=== PATIENT | female | born 1990 | race Caucasian/White ===

== ENCOUNTER 2016-08-27 06:58 | Observation (INO) ==
[2016-08-27] MEDS ORDERED: Ondansetron 4 MG/2 ML VIAL IVP ONE ×2 (07:25→11:54)
[2016-08-27] MEDS ORDERED: Ketorolac 30 MG/ML VIAL IVP ONE (07:25)
--- NOTE | 2016-08-27 07:39 | Emergency Department Note ---
Disposition Clinical Impression: Cholecystitis Disposition: Home, Self-Care Condition: Good Abdominal Pain HPI - General Chief Complaint: ED Abdominal Pain Stated Complaint: abdominal pain, vomiting Time Seen by Provider: 08/27/16 07:14 Source: patient Nursing Notes Reviewed: Yes Vital Signs Reviewed: Yes - History of Present Illness HPI Narrative: Patient began having right upper quadrant and epigastric abdominal pain last night. Was not relieved with Pepto-Bismol. She states the pain radiates to her right and left upper quadrants. Does have associated nausea and vomiting. 2 episodes of this. States she feels clammy but no fevers or chills. Pain Scale: 7 - Related Data Home Medications Medication Instructions Recorded Confirmed Norgestimate-Ethinyl Estradiol 08/24/15 [Ortho Tri-Cyclen 28 Tablet] hydrOXYzine HCl [Hydroxyzine HCl] Q6HR 08/24/15 metFORMIN [Glucophage] 500 mg PO TID 08/24/15 08/24/15 Escitalopram [Lexapro] 20 mg PO DAILY 08/27/16 08/27/16 Esomeprazole Magnesium [Nexium] 40 mg PO DAILY 08/27/16 08/27/16 Labetalol HCl 200 mg PO Q6H 08/27/16 08/27/16 Lisinopril [Zestril] 10 mg PO DAILY 08/27/16 08/27/16 Meloxicam [Mobic] 15 mg PO DAILY 08/27/16 08/27/16 Allergies Allergy/AdvReac Type Severity Reaction Status Date / Time No Known Allergies Allergy Verified 08/27/16 10:42 All systems ED: reviewed and negative except as stated. Constitutional: Denies: fever, chills ENT ED: Denies: ear pain, throat pain, congestion Cardiovascular: Denies: chest pain, palpitations Respiratory: Denies: cough, dyspnea Gastrointestinal: Reports: abdominal pain, nausea, vomiting. Denies: diarrhea, hematemesis, melena Genitourinary: Denies: urgency, dysuria, frequency Musculoskeletal: Denies: back pain, neck pain Neurological: Denies: headache, weakness Abdominal Pain PMH - Past Medical History Medical history: Reports: GERD, hypertension Female Surgical History: Reports: other Psychiatric history: Reports: anxiety - Social History Smoking status: Never smoker Alcohol use: Reports: none Drug use: Reports: none Physical Exam - General Limitations: no limitations General appearance: alert, in no apparent distress - Head Head exam: atraumatic, normocephalic - Eye Eye exam: Present: normal appearance, PERRL, EOMI. Absent: scleral icterus - ENT ENT exam: normal exam, normal oropharynx, mucous membranes moist - Neck Neck exam: Present: normal inspection, full ROM, trachea midline. Absent: tenderness, meningismus, lymphadenopathy - Chest Chest inspection: Present: normal inspection, symmetric chest wall rise. Absent : tenderness - Respiratory Respiratory exam: Present: normal lung sounds bilaterally. Absent: respiratory distress, wheezes - Cardiovascular Cardiovascular exam: Present: regular rate, normal rhythm, normal heart sounds - Abdominal Exam Abdominal exam: Present: soft, tenderness, normal bowel sounds, Lu's sign. Absent: distention, rigidity, organomegaly, Rovsing's sign, tenderness at McBurney's Point - Extremities Exam Extremities exam: Present: normal inspection, full ROM, normal capillary refill. Absent: tenderness, pedal edema - Back Exam Back exam: Present: normal inspection, full ROM. Absent: tenderness, CVA tenderness (R), CVA tenderness (L) - Neurological Exam Neurological exam: Present: alert, oriented X3 - Psychiatric Psychiatric exam: Present: normal affect, normal mood - Skin Skin exam: Present: warm, dry, intact, normal color. Absent: rash, cyanosis Course Course Narrative: Female patient presenting to the emergency department with complaints of burning sensation in her abdomen and radiates to the upper right and upper left quadrants. States this began last night. Pepto-Bismol on attempt to help with this and went to sleep. She states she does have a history of acid reflux this is not uncommon for her however the pain did not relieve by this morning. She states it is actually worse. She states the pain is in the center of her abdomen epigastric region radiates to the right and left upper quadrants. She does have a positive Lu sign on ramp. Also reporting 2 episodes of vomiting. She reports this is just bile. Denies any hematemesis. No urinary complaints. Normal bowel movements for her she states. We will get a right upper quadrant ultrasound the patient's abdomen. We will also get basic labs and provide patient with pain relief and antinausea medication. She states her last meal was last night at dinner. She denies any fevers or chills but states that she does feel clammy. - Reevaluation(s) Reevaluation #1: Patient resting comfortably in bed. She states that she is feeling better now that she has pain medication. We will discuss with Dr. walker admission for the patient. She does have an elevated white blood cell count. She did have a positive Lu sign on exam. She also has stones and probable pericholecystic fluid on the right upper quadrant ultrasound. Time: 09:30 - Consultations Consultation #1: Patient discussed with Dr. walker. He will admit Pt. Pt is in stable condition. Time: 09:31 Vital Signs Temperature 97.9 F 08/27/16 07:01 Pulse Rate 99 08/27/16 07:01 Respiratory Rate 16 08/27/16 07:01 Blood Pressure 182/127 08/27/16 07:01 O2 Sat by Pulse Oximetry 95 08/27/16 07:01 Temperature 98.1 F 08/27/16 10:40 Pulse Rate 105 08/27/16 10:40 Respiratory Rate 16 08/27/16 10:40 Blood Pressure 145/91 08/27/16 10:40 O2 Sat by Pulse Oximetry 97 08/27/16 10:40 Oxygen Delivery Oxygen Delivery Room Air Abdominal Pain - Medical Records Medical records reviewed: Yes I reviewed the patient's medical records. - Lab Data Lab results reviewed: Yes I reviewed the patient's lab results. Result diagrams: 08/27/16 07:53 08/27/16 07:53 Lab Results 08/27/16 08/27/16 08/27/16 Range/Units 07:11 07:11 07:53 WBC 18.4 H (4.3-11.1) K/mcL RBC 4.36 (3.82-4.97) M/mcL Hgb 11.8 (11.5-15.4) g/dL Hct 36.7 (35.3-44.9) % MCV 84.2 (83.0-100.0) fL MCH 27.1 L (28.0-33.3) pg MCHC 32.2 (31.6-35.5) g/dL RDW 13.5 (11.5-14.5) % Plt Count 467 H (140-400) K/mcL MPV 9.7 (9.4-12.4) fL Immature Gran % 0.4 (0-4) % Seg Neutrophils % 87.0 % Lymphocytes % 7.4 % Monocytes % 4.8 % Eosinophils % 0.1 % Basophils % 0.3 % Neutrophils # 16.0 H (1.6-8.9) K/mcL Lymphocytes # 1.4 (0.6-4.6) K/mcL Monocytes # 0.9 (0.0-1.3) K/mcL Eosinophils # 0.0 (0.0-0.6) K/mcL Basophils # 0.1 (0.0-0.2) K/mcL Sodium (136-145) mEq/L Potassium (3.5-4.5) mEq/L Chloride (98-109) mEq/L Carbon Dioxide (19-29) mEq/L BUN (7-20) mg/dL Creatinine (0.57-1.11) mg/dL Est GFR ( Amer) (> 60) Est GFR (Non-Af Amer) (> 60) BUN/Creatinine Ratio (6-26) Glucose (70-99) mg/dL Calculated Osmolality (280-300) Calcium (8.6-10.8) mg/dL Total Bilirubin (0.2-1.2) mg/dL Direct Bilirubin (0.0-0.5) mg/dL Indirect Bilirubin (0.0-1.2) mg/dL AST (5-34) Units/L ALT (0-55) Units/L Alkaline Phosphatase (38-126) Units/L Serum Total Protein (6.0-8.3) g/dL Albumin (3.5-5.0) g/dL Globulin (2.4-3.5) g/dL Albumin/Globulin Ratio (1.1-2.2) Amylase (25-125) Units/L Lipase (8-78) Units/L Urine Color Yellow (Yellow) Urine Clarity Cloudy A (Clear) Urine pH 6.0 (5.0-8.0) pH Units Ur Specific [place] 1.028 H (1.010-1.025) Urine Protein 100 H (Neg-Trace) mg/dL Urine Glucose (UA) Normal (Normal) mg/dL Urine Ketones Negative (Negative) mg/dL Urine Blood Moderate H (Negative) Urine Nitrite Negative (Negative) Urine Bilirubin Negative (Negative) Urine Urobilinogen Normal (Normal) mg/dL Ur Leukocyte Esterase Negative (Negative) Urine Microscopic RBC 5-15 H (0-3) per hpf Urine Microscopic WBC 0-3 (0-3) per hpf Ur Squamous Epith Cells Many H (None-Few) per lpf Urine Bacteria Few (None-Few) per hpf Ur Culture Indicated? NO (NO) Urine Test Negative (Negative) 08/27/16 Range/Units 07:53 WBC (4.3-11.1) K/mcL RBC (3.82-4.97) M/mcL Hgb (11.5-15.4) g/dL Hct (35.3-44.9) % MCV (83.0-100.0) fL MCH (28.0-33.3) pg MCHC (31.6-35.5) g/dL RDW (11.5-14.5) % Plt Count (140-400) K/mcL MPV (9.4-12.4) fL Immature Gran % (0-4) % Seg Neutrophils % % Lymphocytes % % Monocytes % % Eosinophils % % Basophils % % Neutrophils # (1.6-8.9) K/mcL Lymphocytes # (0.6-4.6) K/mcL Monocytes # (0.0-1.3) K/mcL Eosinophils # (0.0-0.6) K/mcL Basophils # (0.0-0.2) K/mcL Sodium 135 L (136-145) mEq/L Potassium 4.1 (3.5-4.5) mEq/L Chloride 101 (98-109) mEq/L Carbon Dioxide 21 (19-29) mEq/L BUN 11 (7-20) mg/dL Creatinine 0.85 (0.57-1.11) mg/dL Est GFR ( Amer) > 60 (> 60) Est GFR (Non-Af Amer) > 60 (> 60) BUN/Creatinine Ratio 13 (6-26) Glucose 129 H (70-99) mg/dL Calculated Osmolality 281 (280-300) Calcium 9.8 (8.6-10.8) mg/dL Total Bilirubin 0.3 (0.2-1.2) mg/dL Direct Bilirubin 0.1 (0.0-0.5) mg/dL Indirect Bilirubin 0.2 (0.0-1.2) mg/dL AST 14 (5-34) Units/L ALT 19 (0-55) Units/L Alkaline Phosphatase 39 (38-126) Units/L Serum Total Protein 8.0 (6.0-8.3) g/dL Albumin 3.6 (3.5-5.0) g/dL Globulin 4.4 H (2.4-3.5) g/dL Albumin/Globulin Ratio 0.8 L (1.1-2.2) Amylase 37 (25-125) Units/L Lipase 14 (8-78) Units/L Urine Color (Yellow) Urine Clarity (Clear) Urine pH (5.0-8.0) pH Units Ur Specific [place] (1.010-1.025) Urine Protein (Neg-Trace) mg/dL Urine Glucose (UA) (Normal) mg/dL Urine Ketones (Negative) mg/dL Urine Blood (Negative) Urine Nitrite (Negative) Urine Bilirubin (Negative) Urine Urobilinogen (Normal) mg/dL Ur Leukocyte Esterase (Negative) Urine Microscopic RBC (0-3) per hpf Urine Microscopic WBC (0-3) per hpf Ur Squamous Epith Cells (None-Few) per lpf Urine Bacteria (None-Few) per hpf Ur Culture Indicated? (NO) Urine Test (Negative) - Radiology Data Radiology results reviewed: Yes I reviewed the patient's radiology results. Gallbladder Ultrasound 08/27/16 07:26 IMPRESSION: 1. Multiple shadowing stones within gallbladder with question of minimal pericholecystic fluid. No sonographic Lu's sign. 2. Otherwise, no acute sonographic abnormality within the visualized right upper quadrant. D/ / Jose Gallegos MD / Jose Gallegos MD Interpreting Provider: Jose Gallegos MD Attestation Statement - Attestation Attestation: I examined this patient and my medical decision-making was reviewed with the TELEGRAPH OPERATOR/PA/Advanced Practice Nurse/Resident Physician. I agree with the documented findings, disposition and treatment plan as described except to the extent set forth below. To ED with right upper quadrant pain. Started during the night. Nausea with 2 episodes of vomiting. No blood. On exam she has some mild right upper quadrant tenderness. Plan. The patient elevated white blood cell count. Ultrasound shows some pericholecystic fluid. Starting antibiotic and admitted to surgery.
[2016-08-27 07:56] LABS: Bilirubin,Urine Negative (Negative); Blood,Urine Moderate (Negative); Clarity,Urine Cloudy (Clear); Color,Urine Yellow (Yellow); Glucose,Urine (UA) Normal (Normal); Ketones,Urine Negative (Negative); Protein,Urine 100 mg/dL (Neg-Trace); Specific Gravity,Urine 1.028 (1.010-1.025); Urobilinogen,Urine Normal (Normal)
[2016-08-27 07:57] LABS: Leukocyte Esterase,Urine Negative (Negative); Nitrite,Urine Negative (Negative)
[2016-08-27 08:02] LABS: Squamous Epithelial Cell,Urine Many per lpf (None-Few)
[2016-08-27 08:03] LABS: Bacteria,Urine Few per hpf (None-Few); WBC,Urine 0-3 per hpf (0-3)
[2016-08-27 08:14] LABS: Basophils # 0.1 K/mcL (0.0-0.2); Basophils % 0.3 %; Eosinophils % 0.1 %; Hematocrit 36.7 % (35.3-44.9); Hemoglobin 11.8 g/dL (11.5-15.4); Immature Granulocytes % 0.4 % (0-4); Lymphocytes # 1.4 K/mcL (0.6-4.6); Lymphocytes % 7.4 %; Mean Corpuscular HGB Conc 32.2 g/dL (31.6-35.5); Mean Corpuscular Hemoglobin 27.1 pg (28.0-33.3); Mean Corpuscular Volume 84.2 fL (83.0-100.0); Mean Platelet Volume 9.7 fL (9.4-12.4); Monocytes # 0.9 K/mcL (0.0-1.3); Monocytes % 4.8 %; Platelet Count 467 K/mcL (140-400); Red Blood Count 4.36 M/mcL (3.82-4.97); Red Cell Distribution Width 13.5 % (11.5-14.5)
[2016-08-27 08:19] LABS: Alanine Aminotransferase 19 Units/L (0-55); Albumin 3.6 g/dL (3.5-5.0); Albumin/Globulin Ratio 0.8 (1.1-2.2); Alkaline Phosphatase 39 Units/L (38-126); Amylase 37 Units/L (25-125); Aspartate Amino Transferase 14 Units/L (5-34); BUN/Creatinine Ratio 13 (6-26); Bilirubin,Direct 0.1 mg/dL (0.0-0.5); Bilirubin,Indirect 0.2 mg/dL (0.0-1.2); Bilirubin,Total 0.3 mg/dL (0.2-1.2); Blood Urea Nitrogen 11 mg/dL (7-20); Calcium 9.8 mg/dL (8.6-10.8); Carbon Dioxide 21 mEq/L (19-29); Chloride 101 mEq/L (98-109); Globulin 4.4 g/dL (2.4-3.5); Glucose 129 mg/dL (70-99); Lipase 14 Units/L (8-78); Osmolality,Calculated 281 (280-300); Potassium 4.1 mEq/L (3.5-4.5); Sodium 135 mEq/L (136-145); eGFR For African Americans > 60 (> 60); eGFR For Non-African Americans > 60 (> 60)
[2016-08-27] MEDS ORDERED: *HR* FentaNYL (PF) 100 MCG/2 ML VIAL ONE (10:53)
[2016-08-27] MEDS ORDERED: *HR* Propofol 200 MG/20 ML VIAL IVP ONE (10:53)
[2016-08-27] MEDS ORDERED: *HR* Succinylcholine 200 MG/10 ML VIAL IVP ONE (10:53)
[2016-08-27] MEDS ORDERED: Ondansetron 4 MG/2 ML VIAL ONE (10:53)
[2016-08-27] MEDS ORDERED: Lidocaine -MPF 2% 2 ML VIAL ONE (10:53)
[2016-08-27] MEDS ORDERED: Dexamethasone 4 MG/ML VIAL ONE (10:53)
[2016-08-27] MEDS ORDERED: Bupivacaine/EPI 1:200k 0.25%PF 30 ML VIAL ONE (11:00)
[2016-08-27] MEDS ORDERED: *HR* Labetalol 20 MG/4 ML SYRINGE IVP PRN (11:54)
[2016-08-27] MEDS ORDERED: Acetaminophen IV 1,000 MG/100 ML INFUS..BTL IVPB ONE (11:54)
[2016-08-27] MEDS ORDERED: *HR* HYDROmorphone (PF) 1 MG/ML SYRINGE IVP PRN ×2 (11:54→14:37)
[2016-08-27] MEDS ORDERED: *HR* Promethazine 25 MG/ML VIAL IVP PRN (11:54)
--- NOTE | 2016-08-27 11:54 | Anesthesia Evaluation PreOp ---
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 Any Significant HX Other Medical History: GERD, Other (Polycystic ovary disease) Anesthesia History: No Prior Anesthetic Complications, Past Anesthesia Alcohol Use: none Drug use: none Medications and Allergies Norgestimate-Ethinyl Estradiol [Ortho Tri-Cyclen 28 Tablet] 1 tab PO DAILY 08/23 [History] hydrOXYzine HCl [Hydroxyzine HCl] 25 mg PO Q6HR PRN 08/24/15 [History] metFORMIN [Glucophage] 500 mg PO TID 08/24/15 [History] Escitalopram [Lexapro] 20 mg PO DAILY 08/27/16 [History] Esomeprazole Magnesium [Nexium] 40 mg PO DAILY 08/27/16 [History] Labetalol HCl 200 mg PO Q6H 08/27/16 [History] Lisinopril [Zestril] 10 mg PO DAILY 08/27/16 [History] Meloxicam [Mobic] 15 mg PO DAILY 08/27/16 [History] Allergies No Known Allergies Allergy (Verified 08/27/16 10:42) - Meds/Allergy Pre-op Review Medications Reviewed: Yes Allergies Reviewed: Yes Beta Blockers on Current Med List: Yes (last dose 0600) Anesthesia Results - Labs 08/27/16 07:53 08/27/16 07:53 Anesthesia Exam Selected Entries 08/27/16 10:40 Temperature 98.1 F Pulse Rate 105 Respiratory Rate 16 Blood Pressure 145/91 O2 Sat by Pulse Oximetry 97 Weight: 117 jug NPO (# of Hours): over 12 hours Pain Scale Used: Numeric (1 - 10) (0) - HEENT Pupil (Motor): Pupils equal Mallampati: II Teeth: Normal Oral Opening: Greater than 3 - Cardiac Rhythm: Regular Murmur: None - Pulmonary Breath Sounds: bilateral Clear Anesthesia Assess/Plan ASA Score: 3 Modified [place] Scale for Level of Consciousness: Cooperative, oriented, and tranquil Anesthetic Plan: General Monitoring Plan: Standard Monitors Recovery Plan: PACU
--- NOTE | 2016-08-27 11:56 | General Surg History&Physical ---
Date of Encounter: 08/27/16 Time of Encounter: 11:20 History of Present Illness Chief complaint: Right upper quadrant abdominal pain, nausea and vomiting HPI: Ms. Caldwell is a 26 year old female referred to surgical services after presenting to [facility] ED with abrupt onset right upper quadrant abdominal pain, nausea and vomiting. Patient was in acute distress on presenting to the emergency department. The patient described pain with inspiration. White count was elevated at 18,400; other blood work was fairly unremarkable. Ultrasound of the gallbladder was reported to show gallstones and a small amount of pericholecystic fluid consistent with acute cholecystitis. A stoma patient's presentation, symptomatology, and radiologic findings she was referred to surgical services to consider surgical intervention. Past medical history: Polycystic ovary, hypertension, depression, GERD Surgical history: Right ureteral reimplantation for reflux at approximate age 8 Allergies: No known drug allergies Medications: Ortho Tri-Cyclen Hydroxyzine every 6 hours Metformin 500 mg by mouth 3 times a day Escitalopram 20 mg by mouth daily Social history: Patient is single, G0, does not smoke/has; denies any alcohol or illicit drug use Family history: Mother with gallbladder disease Physical examination: Obese, age-appropriate, obese female in no acute distress. The Emergency Department personnel was successful at reducing the patient's acute symptoms. Afebrile, 98.1; pulse 89-105; respirations 16, blood pressure 145/91. SPO2 on room air 9798%. Skin: Warm, no obvious jaundice. Hair evident (ruiz) chin and submental neck Lungs: Clear to auscultation, no obvious pain on deep inspiration Cardiac: Tachycardia, without discernible murmurs Abdomen: Obese, soft, nontender. No appreciable hepatosplenomegaly, abdominal masses or fullness. Hypoactive bowel sounds. Well-healed surgical scarring lower abdomen/suprapubic Extremities without clubbing cyanosis or edema Ultrasound gallbladder - was personally reviewed with [facility]. Gallstones are noted without wall thickening or pericholecystic fluid. No obvious ductal dilatation. Laboratories: White count 18.4, hemoglobin 11.8, hematocrit 36.7. Platelet count 467,000; neutrophils 16.0% Sodium 135, potassium 4.1, BUN 11, creatinine 0.85. LFTs within normal limits Urinalysis - specific gravity 1.028; 100 protein moderate urine blood with 5- 15 RBCs per high-powered field. Urine negative Impression: 26-year-old female with new onset right upper quadrant abdominal pain, nausea and vomiting. Ultrasound gallbladder shows gallstones. The report indicates the presence of pericholecystic fluid but this was not apparent on my review of these images with [facility]. The leukocytosis is likely due to the acute pain, nausea and vomiting. The abnormal urine findings are likely due to the patient's history of polycystic ovary syndrome. Plan: Cholecystectomy. The patient is a reasonable candidate for laparoscopic cholecystectomy but understands that an open cholecystectomy may become necessary. Risks of surgery include hemorrhage, infection, intra-abdominal abscess, bile leak, injury to adjacent ducts, vessels, organs, or bowel. Such an injury may require significant surgical repair. Postcholecystectomy diarrhea was also discussed. The patient's acute symptoms have been controlled but she is at risk for recurrent biliary colic in the future. The patient is willing to proceed with surgery. The patient's mother was present and she also agreed to the surgical plan. Past Med Surg Social Fam HX - Past Medical History Medical history: GERD, hypertension Psychiatric history: anxiety - Social History Smoking Status: Never smoker Smokeless Tobacco Status: No Alcohol use: none Drug use: none - Family History Grandfather Living Status: Still Living Hx Family Cardiac Disorders: Yes (Grandfather has heart disaese) Hx Family Respiratory Disorders: No Hx Family Cancer: Yes (Lung Cancer) Hx Family GI Disorders: No Hx Family Genitourinary Disorders: No Hx Family Endocrine Disorder: No Hx Family Musculoskeletal Disorders: No Hx Family Neuromuscular Disorders: No Hx Family Neurologic Disorders: No Hx Family HEENT Disorders: No Hx Family Autoimmune Disorders: No Hx Family Reproductive Disorders: Yes (Polycystic ovarian Syndrome) Hx Family Psychosocial Disorders: No Hx Family Medical Disorders: No Medications and Allergies Norgestimate-Ethinyl Estradiol [Ortho Tri-Cyclen 28 Tablet] 1 tab PO DAILY 08/23 [History] hydrOXYzine HCl [Hydroxyzine HCl] 25 mg PO Q6HR PRN 08/24/15 [History] metFORMIN [Glucophage] 500 mg PO TID 08/24/15 [History] Escitalopram [Lexapro] 20 mg PO DAILY 08/27/16 [History] Esomeprazole Magnesium [Nexium] 40 mg PO DAILY 08/27/16 [History] Labetalol HCl 200 mg PO Q6H 08/27/16 [History] Lisinopril [Zestril] 10 mg PO DAILY 08/27/16 [History] Meloxicam [Mobic] 15 mg PO DAILY 08/27/16 [History] Allergies No Known Allergies Allergy (Verified 08/27/16 10:42) Review of Systems All systems PM: A 10-system review of systems was performed and is negative for pertinent findings except as documented above in the HPI. General Surgery Exam Initial Vital Signs Temp Pulse Resp BP Pulse Ox 97.9 F 99 16 182/127 95 08/27/16 07:01 08/27/16 07:01 08/27/16 07:01 08/27/16 07:01 08/27/16 07:01 Results - Labs 08/27/16 07:53 08/27/16 07:53 Abnormal lab results WBC 18.4 K/mcL (4.3-11.1) H 08/27/16 07:53 MCH 27.1 pg (28.0-33.3) L 08/27/16 07:53 Plt Count 467 K/mcL (140-400) H 08/27/16 07:53 Neutrophils # 16.0 K/mcL (1.6-8.9) H 08/27/16 07:53 Sodium 135 mEq/L (136-145) L 08/27/16 07:53 Glucose 129 mg/dL (70-99) H 08/27/16 07:53 Globulin 4.4 g/dL (2.4-3.5) H 08/27/16 07:53 Albumin/Globulin Ratio 0.8 (1.1-2.2) L 08/27/16 07:53 Urine Clarity Cloudy (Clear) A 08/27/16 07:11 Ur Specific [place] 1.028 (1.010-1.025) H 08/27/16 07:11 Urine Protein 100 mg/dL (Neg-Trace) H 08/27/16 07:11 Urine Blood Moderate (Negative) H 08/27/16 07:11 Urine Microscopic RBC 5-15 per hpf (0-3) H 08/27/16 07:11 Ur Squamous Epith Cells Many per lpf (None-Few) H 08/27/16 07:11 All other labs normal.
[2016-08-27] MEDS ORDERED: *HR* Morphine 10 MG/ML VIAL ONE (12:35)
[2016-08-27] MEDS ORDERED: *HR* HYDROmorphone 2 MG/ML SYRINGE ONE (12:36)
--- NOTE | 2016-08-27 13:45 | Operative Note ---
Date of procedure: 08/27/16 Pre-op diagnosis: cholelithiasis, cholelithiasis Post-op diagnosis: same Procedure: Laparoscopic cholecystectomy with intraoperative cholangiogram Complications: none apparent Anesthesia: GETA Local Anesthetics: 0.25% Sensorcaine HCL with Epinephrine 1:200,000 SubQ (cc) ( 20 mL) Surgeon: Prosper Reeves Estimated blood loss (cc): 10 IV fluids (cc): 1,000 Condition: stable Disposition: PACU Procedure in Detail: The patient was brought to the operating room where she was placed supine upon the operating room table. The patient was appropriately identified as to person and procedure. The accuracy of this information was confirmed by the procedure team. The patient was then intubated and anesthetized under the supervision of Dr. Shruthi Espinoza. The abdomen was prepped and draped in usual sterile fashion. Several milliliters of 0.25% bupivacaine with 1-200,000 units epinephrine was infiltrated into the infraumbilical skin. Mulch transverse incision was made with dissection carried to the fascia. Additional bupivacaine with epinephrine was infiltrated into the fascia. The fascia was then grasped, elevated, and incised. An 11 mm Xcel port was established. The rigid laparoscope was placed within the obturator to visualize passage through the layers of the anterior abdominal wall. Once the abdominal cavity was accessed, the obturator was replaced by the rigid laparoscope. The abdomen was insufflated with gaseous carbon dioxide. There was no obvious visible injury from establishing the port. Under direct visualization 3 additional ports were placed along the costal margin in the subxiphoid, midclavicular, and anterior axillary line. Each site was infiltrated with the bupivacaine with epinephrine solution. The gallbladder was tensely distended making it necessary to aspirate approximately 50 mL of green turbid fluid. With decompression the gallbladder it was grasped and retracted cephalad. The omentum and duodenum were adherent to the infundibulum of the gallbladder consistent with early acute inflammatory changes. These adhesions were lysed with endoscopic [place] dissectors. The hepatoduodenal ligament was also dissected until the cystic duct was exposed and skeletonized. The cystic duct was clipped near the infundibulum of the gallbladder. The area a separate percutaneous insertion site a Taut cholangiogram catheter was introduced. The cystic duct was incised , the cholangiogram catheter inserted. Using C-arm fluoroscopy and quadrant was then completed demonstrating a normal-appearing common bile duct with free flow of contrast into the duodenum. The proximal hepatobiliary tree also appeared normal. Dr. Pérez of [facility] provided an intraoperative reading to indicate that the cholangiogram appeared normal. The cholangiocatheter was removed, the cystic duct was doubly clipped and divided. Cystic artery was identified, skeletonized, clipped and divided. The gallbladder was then dissected from the liver bed using the Ethicon harmonic ravi. Once from the liver bed gallbladder was placed in an endoscopic pouch and removed via the infraumbilical opening. It was necessary to widen this opening to allow the gallbladder and its many stones to be extracted. The specimen was recovered and sent to pathology. The liver bed was inspected for adequate hemostasis and then closure was initiated. The pneumoperitoneum was evacuated, the instrumentation was removed. The fascia of the infraumbilical opening was closed with interrupted [id number] 0 Vicryl using S retractors. The skin edges of the port sites were approximated with subcuticular 4-0 Vicryl. The incisions were sealed with Dermabond dermal adhesive. The patient was taken to recovery in stable condition. Needle, sponge, and instrument counts were correct at the close of the case. Total volume of 0.25% bupivacaine with 1-200,000 epinephrine used during this procedure, 20 mL.
[2016-08-27] MEDS ORDERED: Ringers Solution, Lactated 1,000 ML ONE (13:52)
--- NOTE | 2016-08-27 14:18 | Anesthesia Evaluation Post Op ---
Date of Encounter: 08/27/16 Time of Encounter: 14:16 - Vital Signs Vital Signs: vss - Lungs Lungs: Clear Ascult./Percussion - Airway Airway: Non-obstructed - Cardiovascular Baseline Rhythm - Mental Status Mental Status: Asleep with brisk response to light stimulation - Pain Pain Scale used: Ryann (Faces) - Nausea Vomiting Nausea Vomiting: Not Present - Hydration Hydration: Ice chips - Discharge PostOp Status: Transfer Patient to floor
[2016-08-27] MEDS ORDERED: Ringers Solution, Lactated 1,000 ML IVC SCH (14:37)
[2016-08-27] MEDS ORDERED: Ringers Solution, Lactated 500 ML IVC ONE (14:37)
[2016-08-27] MEDS ORDERED: Acetaminophen 325 MG TABLET PO PRN (14:37)
[2016-08-27] MEDS ORDERED: Ondansetron 4 MG/2 ML VIAL IVP PRN (14:37)
[2016-08-27] MEDS ORDERED: *HR* OxyCODONE/APAP 5/325 TABLET PO PRN (14:37)
[2016-08-27] MEDS ORDERED: *HR* Metformin 500 MG TABLET PO SCH (15:00)
[2016-08-27 18:14] VITALS: BP 151/85
--- NOTE | 2016-08-27 18:43 | General Surgery Progress Note ---
Date of Encounter: 08/27/16 Time of Encounter: 18:37 Subjective Patient reports: feels better Narrative: General Surgery - post op notation patient awake and alert, feeling well. Approximately 4 hours postop with a single episode of emesis immediately after returning from PACU - none since Pain is well-controlled. Afebrile, 97.4; pulse 86, respirations 18, blood pressure 151/85 Lungs: Clear to auscultation, minimal upper abdominal discomfort with deep inspiration. This is expected post laparoscopic surgery due to insufflation during the procedure Abdomen: Soft, obese, port sites clean and dry; active bowel sounds. Impression: Satisfactory postoperative status to allow discharge home Acute cholecystitis, cholelithiasis - s/p op or scopic cholecystectomy with intraoperative cholangiogram PCOS Hypertension Depression Instructions: Regular diet Patient may shower, wash incisions with soap and water Activity as tolerated, lifting to less than 20 pounds Tylenol, ibuprofen, Motrin, Advil, Aleve as needed for pain Percocet provided by prescription #15, 1 every 6 hours as needed for pain Follow up my office, 09/03 or 09/04/16. Patient to call office in AM to make appointment Objective Vital Signs - Last 8 Hours Temp Pulse Resp BP Pulse Ox 08/27/16 17:30 97.4 F L 86 18 151/85 08/27/16 16:30 97.8 F 99 18 151/88 08/27/16 15:33 97.6 F 82 18 136/87 96 08/27/16 15:03 98.6 F 95 18 136/88 94 08/27/16 14:33 97.9 F 90 18 156/85 96 08/27/16 14:18 98 F 97 14 149/79 96 08/27/16 14:08 92 14 148/85 96 08/27/16 13:58 79 14 150/70 94 08/27/16 13:48 98.1 F 76 14 121/64 94 08/27/16 10:40 98.1 F 105 16 145/91 97 Intake and Output 08/27/16 08/27/16 08/27/16 07:59 15:59 23:59 Intake Total 1000 / 1000 Output Total 510 / 510 700 / 700 Balance -510 / -510 300 / 300 Intake: Oral 1000 / 1000 Output: Urine 100 / 100 700 / 700 Emesis 400 / 400 Estimated Blood Loss 10 / 10 - Labs 08/27/16 07:53 08/27/16 07:53 Consult Discharge Plan - Plan Referrals: Prosper Reeves MD [Non-Partnered Physician] -
--- NOTE | 2016-08-27 18:46 | Discharge Summary ---
Outpatient Proc Discharge Plan - Plan Additional Instructions: Regular diet Patient may shower, wash incisions with soap and water Activity as tolerated; lifting limited less than 20 pounds Tylenol, ibuprofen, Motrin, Advil, Aleve, etc. as needed for pain Prescription for Percocet 5/325, #15, 1 every 6 hours as needed for pain not relieved by [id number] medications Follow-up my office, 09/03/16 or 09/04/16. Patient to call office in a.m. to make this appointment. Prescriptions: OxyCODONE/APAP 5/325 [Percocet 5/325 MG] 1 each PO Q6H PRN #15 tablet PRN Reason: Pain Home Medications: Norgestimate-Ethinyl Estradiol [Ortho Tri-Cyclen 28 Tablet] 1 tab PO DAILY 08/23 [History] hydrOXYzine HCl [Hydroxyzine HCl] 25 mg PO Q6HR PRN 08/24/15 [History] metFORMIN [Glucophage] 500 mg PO TID 08/24/15 [History] Acetaminophen [Tylenol] 650 mg PO Q6HR PRN #0 tablet 08/27/16 [Rx] Escitalopram [Lexapro] 20 mg PO DAILY 08/27/16 [History] Esomeprazole Magnesium [Nexium] 40 mg PO DAILY 08/27/16 [History] Labetalol HCl 200 mg PO Q6H 08/27/16 [History] Lisinopril [Zestril] 10 mg PO DAILY 08/27/16 [History] Meloxicam [Mobic] 15 mg PO DAILY 08/27/16 [History] OxyCODONE/APAP 5/325 [Percocet 5/325 MG] 1 each PO Q6H PRN #15 tablet 08/27/16 [ Rx]
[2016-08-28] MEDS ORDERED: NORGESTIMATE ETHINYL ESTRADIOL PO SCH (09:00)
== END 2016-08-27 18:53 | disposition home or self-care (01) ==
LOC: EMEROO 06:58 → 3ANU 06:58
PROVIDERS: ADMIT Surgery; ATTEND Surgery